=== PATIENT | female | born 1950 | race Caucasian/White ===

== ENCOUNTER 2016-09-19 15:11 | Observation (INO) | payer MEDICARE, OTHER ==
[~2016-09-19] VITALS: Ht 174 cm; Wt 74.0 kg
[~2016-09-19 15:11] MED LIST: ASCO100089 PO; ASPI-628 PO; CALC-190 PO; CHOL100043 PO; COD1CAPS16 PO; MULT-285 PO; TRIA1TAB3 PO
[2016-09-19 15:14] VITALS: BP 137/75; PULSE 63; RESP 16; O2SAT 100
--- NOTE | 2016-09-19 15:54 | ED.REPORT ---
HPI-General Illness Date of Service Sep 19, 2016 ED Provider: Tr Erazo MD A 65 year old female with a history of hyperlipidemia and hypertension presents to the ED with chest pressure and heaviness that began this morning. Her chest pressure has been constant since onset. She rates her current pain as a 3/10 and the pain does not radiate anywhere. She reports intermittent episodes of dizziness and lightheadedness that began yesterday and lasts 10-15 seconds. She also reports episodic left arm numbness and tingling. Patient was seen today at Urgent Care for sternal chest pain and was sent to the ED for further evaluation following a reassuring EKG and chest X-ray. Last stress test in 2014 was normal. Mother of CHF in her 60's. Patient denies any unilateral weakness, generalized weakness, SOB, fever, chills, abdominal pain, nausea or vomiting. Patient smokes 2-3 cigarettes per week. Nursing Notes Stated Complaint: CHEST PAIN Chief Complaint: Chest Pain Nursing Notes Reviewed: Yes Allergies: Coded Allergies: doxycycline (Verified Allergy, Severe, facial swelling, 09/19/16) atorvastatin (Verified Allergy, Intermediate, peripheral neuropathy, ) Scheduled Ascorbate Calcium (Vitamin C) 500 Mg Tablet 1,000 MG PO DAILY Aspirin (Aspirin) 81 Mg Tablet 81 MG PO DAILY Calcium Carb/Vit D3/Minerals (Calcium 600+D Plus Minerals Tb) 1 Each Tablet 1 EACH PO DAILY Cholecalciferol (Vitamin D3) (Vitamin D) 1,000 Unit Tablet 1,000 UNIT PO DAILY Estradiol (Estrace) 42.5 Gm Cream.appl 1 GM VAGINAL WEEKLY Hydrochlorothiazide (Hydrochlorothiazide) 25 Mg Tablet 12.5 MG PO DAILY Lisinopril (Lisinopril) 5 Mg Tablet 5 MG PO DAILY Multivitamin (Multivitamins) 1 Each Capsule 1 EACH PO DAILY Vit A & D3 in Cod Liver Oil (Cod Liver Oil Softgel) 1 Each Capsule 1 EACH PO DAILY General Time Seen by MD: 15:44 Chief Complaint Chest pain Hx Obtained From: Patient Arrived By: Walk-in Sudden in Onset?: No Onset Occurred: Yesterday Symptom Duration: Intermittent Location: : Chest Quality: Heaviness, Pressure Radiation: : Does not radiate Severity: Current: Pain level 3 out of 10 Severity: Maximum: Pain level 3 out of 10 Associated with: Reports: Chest pain, Dizziness, Weakness, Denies: Fever, Nausea, Shortness of breath, Vomiting Pertinent Negative: Pt denies other symptoms Recent Healthcare: No recent doctor visit, No recent hospitalization Past Medical History Past Medical History Hypertension Hyperlipidemia Past Surgical History Colonoscopy - Hemorrhoids (2014) Family History Mother - of CHF in 60's Smoking History Current Some Day Smoker (2-3 days) Social History Other Social History: Good social support, , Local resident Ambulatory Status Independent Review of Systems Full Review of Systems Constitutional: Denies: Chills, Fever Respiratory: Denies: Shortness of breath Cardiovascular: Reports: Chest pain (chest pressure) GI: Denies: Abdominal pain, Nausea, Vomiting Neurologic: Reports: Dizziness, Lightheaded, Numbness, Denies: Weakness Complete sys rev & neg: except as marked. Physical Exam Nursing note and vitals reviewed. Constitutional: Well-developed, well-nourished. Not diaphoretic. Head: Normocephalic and atraumatic. Mouth/Throat: Oropharynx is clear and moist. No oropharyngeal exudate. Eyes: EOM are normal. Pupils are equal, round, and reactive to light. Neck: Supple, no tracheal deviation. Cardiovascular: Normal rate, regular rhythm. Equal and intact distal pulses throughout. Pulmonary/Chest: Effort normal and breath sounds normal. No respiratory distress. Abdominal: Soft. No distension. There is no tenderness, rebound, or guarding. Musculoskeletal: Range of motion grossly intact, moving all extremities. No edema or tenderness appreciated. Neurological: AOx3. Grossly nonfocal exam. Strength and sensation intact and equal to bilateral upper and lower extremities. Normal finger to nose testing. No pronator drift. unremarkable gait. Skin: Warm and dry, no rashes or pallor appreciated. Psychiatric: Appropriate mood and affect. Behavior appears normal. Vital Signs Vital Signs Date Time Temp Pulse Resp B/P Pulse Ox O2 Delivery O2 Flow Rate FiO2 09/19/16 19:29 60 16 156/53 100 Room Air 09/19/16 17:43 57 15 150/75 09/19/16 15:14 36.0 63 16 137/75 100 Room Air Interpretation & Diagnostics Lab Results Interpretation Result Diagram: 09/19/16 1550 09/19/16 1550 Test 09/19/16 15:50 White Blood Count 4.8th/mm3 (3.8-10.1) Red Blood Count 4.24mil/mm3 (3.90-5.20) Hemoglobin 13.7g/dL (12.0-15.6) Hematocrit 39.8% (35.0-46.0) Mean Corpuscular Volume 93.9fL (81-100) Mean Corpuscular Hemoglobin 32.3pg (27.0-35.0) Mean Corpuscular Hemoglobin Concent 34.4% (32.0-37.0) Red Cell Distribution Width 11.8% (12.3-15.4) Platelet Count 255bil/L (150-400) Neutrophils (%) (Auto) 66.1% (40-74) Lymphocytes (%) (Auto) 23.2% (14-46) Monocytes (%) (Auto) 8.2% (4-12) Eosinophils (%) (Auto) 2.1% (0-5) Basophils (%) (Auto) 0.4% (0-3) Sodium Level 136mEq/L (134-144) Potassium Level 3.4mEq/L (3.5-5.2) Chloride Level 97mEq/L (97-108) Carbon Dioxide Level 25mmol/L (18-29) Blood Urea Nitrogen 15mg/dL (8-27) Creatinine 0.60mg/dL (0.57-1.00) Estimat Glomerular Filtration Rate 144mL/min (>59) Glucose Level 120mg/dL (60-99) Calcium Level 9.4mg/dL (8.5-10.1) Magnesium Level 2.1mg/dL (1.6-2.6) Total Bilirubin 0.5mg/dL (0.0-1.2) Aspartate Amino Transf (AST/SGOT) 24U/L (0-50) Alanine Aminotransferase (ALT/SGPT) 26U/L (0-32) Alkaline Phosphatase 81U/L (25-165) Total Creatine Kinase 72U/L (21-215) Creatine Kinase MB 1.7ng/mL (0.0-5.3) Creatine Kinase MB % % (0.0-5.0) Troponin T < 0.010ug/L (0.0-0.011) Total Protein 7.3g/dL (6.4-8.4) Albumin 4.4g/dL (3.4-5.0) Thyroid Stimulating Hormone (TSH) 1.400uIU/mL (0.450-4.500) Hold Hameed Top Tube Received (Received) ECG Interpretation ECG Interpretation: EKG Sinus Rhythm Rate 62 Borderline prolonged NV interval Time: 15:40 Interpreted by: ED physician X-Ray Chest Interpretation Chest Xray Interpretation: IMPRESSION: No acute cardiopulmonary disease process. Dictated by: Lulu Nguyen MD, PhD on 09/19/2016 at 16:20 Interpretation / Wet Read by: Interpret - Radiologist CT Head Interpretation IMPRESSION: No acute intracranial disease process. Dictated by: Lulu Nguyen MD, PhD on 09/19/2016 at 19:16 Study: Head CT no contrast Interpretation / Wet Read by: Interpret - Radiologist Re-Eval/Medical Decision Med Decision/Clinical Course In summary, 65 yo F who presents to the ED for evaluation of exertional midsternal chest pain with associated R arm numbness and tingling. Differential includes ACS, PE, PTX, aortic dissection, myocarditis/pericarditis, abdominal etiology such as cholecystitis, MSK pain. Pain has been constant since onset; troponin negative. HEART score of 4. EKG demonstrates sinus rhythm with no acute ischemic changes. Low risk by [facility] for PE. No evidence of pneumothorax on chest x-ray or exam. Pain not described as tearing through to the back, CXR w / no evidence of widened mediastinum, normal neuro exam, and equal pulses to bilateral upper and lower extremities; aortic dissection seems very unlikely. Neither clinical presentation, exam, or EKG seem c/w pericarditis or myocarditis. No abdominal pain or tenderness. Rest of labs reviewed, unremarkable. With the patient's right sided paresthesias, a CT head was obtained and negative for acute abnormality. Patient would likely benefit from a stress test for risk stratification - given her risk factors, plan admission for further evaluation and management. Patient agreeable to plan, no further questions. Time of Eval: 18:27 Patient Status: Condition improved Re-Evaluation/Progress Note: She is informed of her results and the recommendation to have a repeat stress test. She is offered admission at this time. Consultation : Referral / Consult Name: Heaven Bruno DO Consulted With: Hospitalist Call Returned at: 19:28 Help Desk Assistant: Will see patient, Agrees with eval, Agrees with plan, Accepts admit Counseled Regarding: Diagnosis, Lab results, Need for admission Discharge & Departure Primary Impression: Chest pain Chest pain type: unspecified Qualified Code: R07.9 - Chest pain, unspecified Additional Impression: TIA (transient ischemic attack) Transient cerebral ischemia type: unspecified Qualified Code: G45.9 - Transient cerebral ischemic attack, unspecified Disposition: ADMITTED TO HOSPITAL Discharge Condition All VS Reviewed: Yes Condition: Improved Referrals: Chichi Mabry MD (PCP) Scribe Attestation Portions of this note were transcribed by Roberto Vizcarra. I, Dr. Erazo personally performed the history, physical exam and medical decision-making; I reviewed and confirmed the accuracy of the information in the transcribed note. Signed by: Deborah Arellano, 09/19/161926. copies to: Chichi Mabry MD, William B MD Sep 19, 2016 15:54 ROBERTO VIZCARRA Sep 19, 2016 16:02
[2016-09-19 16:06] LABS: BASOPHILS % (AUTO) 0.4 % (0-3); EOSINOPHILS % (AUTO) 2.1 % (0-5); MONOCYTES % (AUTO) 8.2 % (4-12); Mean Corpuscular Hemoglobin 32.3 pg (27.0-35.0); Mean Corpuscular Volume 93.9 fL (81-100); NEUTROPHILS % (AUTO) 66.1 % (40-74); Platelet Count 255 bil/L (150-400)
--- NOTE | 2016-09-19 16:23 | DRSVH ---
PROCEDURE: X-RAY CHEST ONE VIEW, PORTABLE ([id number]) INDICATIONS: Chest pain. TECHNIQUE: One view of the chest was acquired. COMPARISON: [facility], , CHEST 1VW (PORTABLE), 07/16/2009, 16:29. FINDINGS: Surgical changes and devices: None. Lungs and pleura: No pleural effusions or pneumothorax. Lungs are clear. Mediastinum: Mediastinal contours appear normal. Heart size is normal. Bones and chest wall: No suspicious bony lesions. Overlying soft tissues appear unremarkable. IMPRESSION: No acute cardiopulmonary disease process. Dictated by: Lulu Nguyen MD, PhD on 09/19/2016 at 16:20 Approved by: Lulu Nguyen MD, PhD on 09/19/2016 at 16:20
[2016-09-19 16:32] LABS: TROPONIN T < 0.010 ug/L (0.0-0.011)
[2016-09-19 16:40] LABS: Magnesium 2.2 mg/dL (1.6-2.6)
[2016-09-19 17:43] VITALS: BP 150/75; PULSE 57; RESP 15
[2016-09-19] MEDS ORDERED: LISI-571 PO (19:10)
[2016-09-19] MEDS ORDERED: HYDR25TA4 PO (19:10)
[2016-09-19] MEDS ORDERED: ESTR42.52 VAGINAL (19:10)
[2016-09-19] MEDS ORDERED: ASCO-294 PO (19:12)
[2016-09-19] MEDS ORDERED: CALC-83 PO (19:12)
[2016-09-19] MEDS ORDERED: MULT1CAP33 PO (19:12)
[2016-09-19] MEDS ORDERED: ASPI-973 PO (19:15)
--- NOTE | 2016-09-19 19:23 | DRSVH ---
PROCEDURE: CT BRAIN WITHOUT CONTRAST ([id number]) INDICATIONS: Left upper extremity paresthesias and dizziness. TECHNIQUE: Noncontrast 4.5 mm thick angled axial sections acquired from the foramen magnum to the vertex, with c oronal reformats. COMPARISON: None. FINDINGS: Image quality: Excellent. CSF spaces: Basal cisterns are patent. No extra-axial fluid collections. The ventricles are symmet carine in size and shape. Brain: No intracranial bleeds or masses. There is cerebral volume loss for age, with resultant vent ricular and sulcal prominence. There are periventricular and deep white matter chronic small vessel ischemic changes. There is intracranial internal carotid artery atherosclerosis. Skull and face: Calvarium and visualized facial bones appear intact, without suspicious lesions. Sinuses: Visualized sinuses and mastoids are clear. IMPRESSION: No acute intracranial disease process. Dictated by: Lulu Nguyen MD, PhD on 09/19/2016 at 19:16 Approved by: Lulu Nguyen MD, PhD on 09/19/2016 at 19:22
[2016-09-19 19:29] VITALS: BP 156/53; PULSE 60; RESP 16; O2SAT 100
[2016-09-19] MEDS ORDERED: Potassium Chloride 20 mEq SR Tablet PO ONE (19:30)
[2016-09-19] MEDS ORDERED: Ondansetron 2 mg/mL 2 mL Inj IVPUSH PRN (19:45)
[2016-09-19] MEDS ORDERED: Polyethylene Glycol (PEG) 17 Gm Powder PO PRN (19:45)
[2016-09-19] MEDS ORDERED: Alum-Mag Hydrox-Simeth 30 mL Suspension PO PRN (19:45)
[2016-09-19] MEDS ORDERED: Senna-Docusate 8.6-50 mg Tablet PO PRN (19:45)
[2016-09-19 20:14] LABS: Creatine Kinase 72 U/L (21-215); Magnesium 2.1 mg/dL (1.6-2.6)
[2016-09-19 20:34] VITALS: BP 163/79; PULSE 58; RESP 18; O2SAT 97
--- NOTE | 2016-09-19 21:29 | PCM.HPMED ---
Subjective Date of Service Sep 19, 2016 Primary Provider: Admitting Physician: Heaven Bruno DO Primary Care Physician: Chichi Mabry MD Attending Physician: Heaven Bruno DO Admit Status: From the Emergency Department Chief Complaint: Chest pain History of Present Illness: Hanh Fulton is a 65-year-old woman with past medical history significant for hyperlipidemia, hypertension who presented to the [facility] emergency department today from urgent care due to constant substernal chest pressure that began several hours prior. Patient denies any radiation of the pain. Patient has a strong family history of coronary artery disease and is a smoker. Patient also noted lightheadedness. Patient also had an episode of chest pressure that lasts about 5-6 hours yesterday but it went away on its own. He denies any nausea/vomiting, abdominal pain, shortness of breath, cough, fevers, chills. He also complains of episodic right arm numbness and tingling. In urgent care patient underwent EKG and chest x-ray which were reassuring. She was also given a full dose aspirin in the urgent care. Patient underwent a stress test last year which was negative. She was not given any NTG. Patient also notes intermittent episodes of tinging in around her mouth and finger tips that lasted a few seconds and went away. In the emergency department her vital signs were stable. She was noted to have a low potassium on laboratory evaluation and was given 40 mEq of potassium PO. Review of Systems: A comprehensive review of systems was conducted with the patient and found to be negative except as above in the History of Present Illness. Allergies Coded Allergies: doxycycline (Verified Allergy, Severe, facial swelling, 09/19/16) atorvastatin (Verified Allergy, Intermediate, peripheral neuropathy, ) Home Medications Hanh Fulton [id number] 1950 09/19/2016 02:20 PM 03/05 Start Date Medication Directions Stop Date alprazolam 0.25 mg tablet take 0.5 - 1 tablet by oral route every day as needed for insomnia or anxiety 11/10/2011 Calcium 500 500 mg calcium (1,250 mg) tablet 08/29/2010 cod liver oil Cap 01/03/2016 Estrace 0.01% (0.1 mg/gram) vaginal cream insert (1G) by vaginal route every week 08/27/2016 hydrochlorothiazide 25 mg tablet take 1 tablet by oral route every day Immune Support Complex take 1 tab daily 08/27/2016 lisinopril 5 mg tablet take 1 tablet by oral route every day for blood pressure control 08/29/2010 Multi-Day Tab take 1 tablet by oral route every day with food Urinary Tract take 1 tab daily 08/29/2010 Vitamin C 1,000 mg Tab 08/28/2016 Vitamin D3 1,000 unit tablet 2 tablets daily PMH Hypertension Hyperlipidemia Insomnia Surgical History Hysterectomy Bilateral tubal ligation Family History Father had dementia and stroke at 89. Mother had a heart attack and of subsequent CHF in her 70s. Social History Hx Alcohol Use: Yes (Occasional) Hx Substance Use: No Hx Tobacco Use: Yes (Pt. considers herself a non-smoker) Smoking Status: Current Some Day Smoker Exam Vital Signs Vital Sign - Last Date Time Temp Pulse Resp B/P Pulse Ox O2 Delivery O2 Flow Rate FiO2 09/19/16 19:29 60 16 156/53 100 Room Air 09/19/16 15:14 36.0 Exam General: No acute distress, well-developed, well-nourished, appropriately interactive. Appears younger than stated age. HEENT: Normocephalic, atraumatic. External ears without defect. Pupils equal, round, and reactive to light and accommodation. Anicteric sclerae, moist conjunctivae, and no lid lag. Oropharynx free of erythema and cobble stoning with moist mucosa. Neck: Supple with full range of motion. No jugular venous distension. No bruits. No lymphadenopathy or thyromegaly. Cardiovascular: Regular rate and rhythm with no murmurs, rubs, or gallops appreciated Pulmonary: Clear to auscultation bilaterally with no crackles, wheezes, or rhonchi. Normal respiratory effort with no use of accessory muscles. Abdomen: Bowel tones present. Soft, nontender, nondistended. No hepatosplenomegaly or masses appreciated. Extremities: No clubbing, cyanosis, edema, or lymphadenopathy appreciated. Skin: Normal temperature, turgor, and texture; no rash, ulcers, or subcutaneous nodules appreciated. Neurological: Cranial nerves grossly intact. Normal muscle strength, tone, and bulk. Reflexes, coordination, and sensory function within normal limits. No known gait impairment. Psychiatric: Normal mood and affect. Alert and oriented to person, place, and time. Lab and Diagnostics Result Diagram: 09/19/16 1550 09/19/16 1550 X-Rays, CTs and MRIs X-RAY CHEST ONE VIEW, PORTABLE IMPRESSION: No acute cardiopulmonary disease process. Dictated by: Lulu Nguyen MD, PhD on 09/19/2016 at 16:20 CT BRAIN WITHOUT CONTRAST IMPRESSION: No acute intracranial disease process. Dictated by: Lulu Nguyen MD, PhD on 09/19/2016 at 19:16 Assessment & Plan Hanh Fulton is a 65-year-old woman with past medical history significant for hyperlipidemia, hypertension who presented to the [facility] emergency department today from urgent care due to constant substernal chest pressure that began several hours prior. Atypical chest pain, present remission, active -Patient meets 1/3 criteria per Honey Stacy, with an intermediate pre- test probability of positive stress test. -Telemetry -Fasting lipid panel in a.m., A1c -Aspirin 81 mg -Patient has allergy to statins -Echo in a.m. -Nuclear Medicine exercise stress test in a.m. -EKG PRN chest pain -Will hold beta blocked for stress test -Trend troponin -NTG PRN pain -Morphine PRN pain -NPO after midnight Hypokalemia, present on admission, active -Likely culprit of perioral and digit tingling. -CT brain negative. Exam unremarkable. Unlikely to represent a stroke or TIA. -Continue to monitor electrolytes Hypertension -Continue home medications Hypokalemia -Continue home medications Nicotine dependence -Nicotine patch offered CODE STATUS: Full code Patient is admitted under observation status with expected length of stay less than 2 midnights due to severity of presenting symptoms, risk of adverse event, and complexity of treatment plan VTE Prophylaxis: Sub-Q Heparin (Unfractionated) Resuscitation Status: CPR: Attempt Resuscitation Attending Statement The patient was seen and examined together with house staff on 09/19/2016 and I agree with the history, exam and plan as outlined in the note above. Hellen Simeon DO Sep 19, 2016 20:25 Heaven Bruno DO Sep 20, 2016 01:15
--- NOTE | 2016-09-19 22:24 | NUR ---
Admit Patient admitted to room 3015 at 2015 from ED. Alert and oriented. Admit assessment done in ED by admit RN. Oriented to room, call light, plan of care, hospital policies, intentional rounding. Patient to be NPO after midnight- agreeable. Telemetry connected, patent IV site. Call light within reach.
[2016-09-20] VITALS (7 sets, daily range): BP systolic 117–165; BP diastolic 71–75; PULSE 49–62; RESP 18; O2SAT 96–99
[2016-09-20] MEDS: Sodium Chloride LOK Flush 10 mL Syringe IVFLUSH SCH ×2 (00:47→08:42)
[2016-09-20] MEDS: Heparin 5,000 Unit/mL Inj SUBQ SCH ×2 (00:47→08:43)
[2016-09-20 03:51] LABS: BASOPHILS % (AUTO) 0.5 % (0-3); EOSINOPHILS % (AUTO) 3.6 % (0-5); MONOCYTES % (AUTO) 11.6 % (4-12); Mean Corpuscular Volume 94.7 fL (81-100); NEUTROPHILS % (AUTO) 56.3 % (40-74); Platelet Count 242 bil/L (150-400)
[2016-09-20 04:27] LABS: Creatine Kinase 55 U/L (21-215)
[2016-09-20] MEDS ORDERED: Ascorbic Acid 500 mg Tablet PO SCH (08:30)
[2016-09-20] MEDS: Calcium Carbonate (Oyster Shell) 500 mg Tablet PO SCH ×2 (08:30→08:48)
--- NOTE | 2016-09-20 13:39 | DRSVH ---
PROCEDURE: EITHER REST OR STRESS ONLY Exercise myocardial perfusion SPECT with gated imaging and ejection fraction RADIOPHARMACEUTICAL: 19.7 mCi Tc-99m tetrafosmin IV at peak exercise. INDICATIONS: CP. TECHNIQUE: Radiopharmaceutical was injected at peak stress test. SPECT images were obtained, with p erfusion images in short axis, horizontal long axis, and vertical long axis views. Gated images were reviewed using Henable software. COMPARISON: None. CARDIAC STRESS: A standard Edinson treadmill exercise tolerance test was performed by the patient under the supervision of an attending staff. The patient exercised for 9 minutes and 36 seconds; functional aerobic impai rment (ANGEL) is -45 %. Hemodynamic data: There is normal blood pressure and heart response to exercise. Patient achieved 9 4% of maximum predicted heart rate. Symptoms: Patient denied anginal chest pain during exercise. EKG: No diagnostic changes of ischemia; no ectopy. FINDINGS: Raw data: There is good labeling of myocardium by radiotracer. No significant motion artifacts. . Left ventricular function: Gated images demonstrate normal left ventricle wall thickening. No segme ntal wall motion abnormalities. Left ventricle end diastolic volume is 62 mL. Left ventricle stress ejection fraction is 81%; normal values are above 45%. Myocardial perfusion: There is normal distribution of activity in the left and right ventricular crystal cardium, without focal perfusion defects. IMPRESSION: This is a normal myocardial perfusion study. Normal ejection fraction. Normal stress EKG. Patient denied any chest pain during her the study. Overall this is considered to be a low risk stud y. Dictated by: Lisandro Martin Jr., M.D. on 09/20/2016 at 13:33 Approved by: Lisandro Martin Jr., M.D. on 09/20/2016 at 13:36
--- NOTE | 2016-09-20 13:40 | PCM.DIMED ---
Discharge Instructions Date of Service Sep 20, 2016 Dates of Hospitalization Sep 19, 2016 at 19:30 Discharge Diagnosis Discharge Diagnosis Atypical chest pain, poa,resolved Hypokalemia, present on admission, active hyperlipidemia Hypertension Nicotine dependence Diet Discharge Diet: Low fat, Low Sodium Activity Discharge Activity: Limited until seen by PCP Call your provider Call your provider for: Fever or Chills, Shortness of breath, Bleeding, Chest pain, Vomitting, Excessive diarrhea, Weakness (unilateral) Patient Instructions Patient Instructions You were hospitalized due to chest pain . Pain resolved. EKG ,cardiac enzymes , stress test negative for heart attack. your Cholesterol is elevated.LDL 201. You have been tried on atorvastatin previously discontinued due to side effects of hand tingling. I will start you on pravastatin and see if he tolerates. Continue aspirin 81 mg by mouth daily. Please get your calcium, vitamin D and potassium checked in a week. Continue calcium and vitamin D supplements. Follow-up Provider: Chichi Mabry MD Follow-up with PCP in: 1 week Stanley Elena MD Sep 20, 2016 13:40
--- NOTE | 2016-09-20 14:18 | NUR ---
AGA explained and signed. Copy of AGA and Medicare self administered medication information.
--- NOTE | 2016-09-20 14:30 | NUR ---
Social Work: Initial Assessment / Multidisciplinary Rounds / Discharge Data: Pt is a 65 y/o female admitted for chest pain, TIA. Pt's PCP is Dr Mabry, pt's insurance is Medicare with [employer]. EMR reviewed. Readmit score not listed. BUILDING ADMIN met with pt at bedside, role explained. Pt states she lives on [address] alone in a single story home where she uses no DME. PT has no hx of HH or SNF, drives, does not have LTC or VA benefits, and is not a caregiver. Pt reports her car is at the hospital and she plans to drive herself home today. No further d/c planning needs at this time. BUILDING ADMIN will continue to follow if needs arise. Assessment: Pt who is independent at baseline, capable of self care at this time. Plan: Pt will d/c home via POV today. No further d/c planning needs at this time. BUILDING ADMIN will continue to follow if needs arise. SESAR Medrano Addendum: 09/20/16 at 1433 by PRINCE TORRES Amended: Links added.
[2016-09-20] MEDS ORDERED: PRAV10TA2 PO (15:01)
--- NOTE | 2016-09-20 15:21 | DRSVH ---
[facility] [address] [place] [address] Echocardiogram Report Name: MAGAN OSUNA Study Date: 09/20/2016 Height: 68.5 in Hospital Exam Location: [facility] Weight: 163 lb Gender: Female BSA: 1.9 m2 : 1950 Age: 65 yrs BP: 117/72 m mHg Reason For Study: Chest pain Ordering Physician: [facility] Performed By: Eric Watson Referring Physician: RAKEL LINDSEY Interpretation Summary The left ventricle is normal in size, wall thickness, and systolic function without any focal wall motion abnormalities. The ejection fraction is estimated to be 60-65%. The right ventricle is normal in size and function. Pulmonary artery pressures cannot be estimated because of the lack of a measurable TR jet velocity. Borderline left atrial enlargement. The right atrium is mildly dilated. There is no significant valvular heart disease. The ascending aorta is mildly enlarged. Procedure: A two-dimensional transthoracic echocardiogram with color flow and Doppler was performed. The study quality was technically adequate. There is no prior echocardiogram noted for this patient. The patient was in normal sinus rhythm during the exam. Left Ventricle: The left ventricle is normal in size, wall thickness, and systolic function without any focal wall motion abnormalities. The ejection fraction is estimated to be 60-65%. Assessment of diastolic parameters indicates normal left ventricular diastolic function and normal filling pressures. Right Ventricle: The right ventricle is normal in size and function. Atria: Borderline left atrial enlargement. The right atrium is mildly dilated. The interatrial septum is intact with no evidence for an atrial septal defect. Mitral Valve: The mitral valve is normal. There is trace mitral regurgitation. Aortic Valve: The aortic valve is normal in structure and function. No aortic regurgitation is present. Tricuspid Valve: The tricuspid valve is normal. There is a trace or physiologic amount of tricuspid regurgitation. Pulmonary artery pressures cannot be estimated because of the lack of a measurable TR jet velocity. Pulmonic Valve: The pulmonic valve is not well visualized. There is no significant valvular heart disease. Great Vessels: The aortic root is normal size. The ascending aorta is mildly enlarged. The pulmonary artery is normal size. The IVC is of normal diameter and collapses greater than 50% with a sniff. This suggests a low right atrial pressure of 3 mm Hg. Pericardium/ Pleura There is no pericardial effusion. There is no pleural effusion. MMode/2D Measurements & Calculations LVIDd: 4.8 cm RA long axis LVOT diam: 1.8 cm LVIDs: 2.2 cm LA A2 area: 18.3 cm AoV Opening FS: 53.1 % LA A4 area: 20.8 cm RA area IVSd: 0.83 cm LA length (vol) Ao root diam LVPWd: 0.82 cm : 20.4 cm LA vol: 59.4 ml RA vol asc Aorta Diam LA vol index : 64.4 ml RA Ao Arch Diam (Prox : 34.2 mm2 Trans): 2.8 cm IVC diam: 2.0 cm LV gan. diameter/BSA LV sys. diameter/BSA RVD1 (basal) TAPSE: 2.6 cm (cm/m^2): 2.5 (cm/m^2): 1.2 Doppler Measurements & Calculations Ao V2 max: 156.6 cm/secMV E max gadiel MV E/A: 1.0 PA V2 max Ao max P.8 mmHg : 78.5 cm/sec Med Peak E' Gadiel : 108.1 cm/sec Ao mean P.0 mmHg MV A max gadiel PA mean PG LVOT Max Gadiel : 77.0 cm/sec E/E' med: 10.9 : 3.0 mmHg : 117.0 cm/sec Lat Peak E' Gadiel MATTHEW(I,D): 1.9 cm E/E' lat: 9.5 sev ratio: 0.74 E/e' average MV dec time: 0.26 sec Ao V2 mean LV V1 max PG PA V2 mean : 105.8 cm/sec : 83.5 cm/sec Ao V2 VTI: 35.3 cmLV V1 VTI: 26.2 cmPA pr(Accel) : 19.9 mmHg MATTHEW(V,D): 1.9 cm2 MATTHEW indexed to BSA (cm^2/m^2): 1.0 Reading Physician:JOSE MARTIN
--- NOTE | 2016-09-20 15:47 | NUR ---
Discharge D/C to home with friend at bedside. D/C packet including instructions, RX and care notes discussed and provided. Pt comfortable with plan of care at this time and requested to ambulate off floor with all belongings and was steady on her feet.
--- NOTE | 2016-09-20 16:27 | PCM.DC.MED ---
Discharge Summary Date of Service Sep 20, 2016 Dates of Hospitalization Date of Hospital Admission Sep 19, 2016 at 19:30 Date of Discharge: Sep 20, 2016 Providers: Admitting Physician: Heaven Bruno DO Primary Care Physician: Chichi Mabry MD Attending Physician: Stanley Schofield MD Diagnosis at Time of Discharge Diagnosis at Time of Discharge Atypical chest pain, poa,resolved Hypokalemia, present on admission, active hyperlipidemia Hypertension Nicotine dependence Procedures XRay, CTs & MRIs X-RAY CHEST ONE VIEW, PORTABLE IMPRESSION: No acute cardiopulmonary disease process. Dictated by: Lulu Nguyen MD, PhD on 09/19/2016 at 16:20 CT BRAIN WITHOUT CONTRAST IMPRESSION: No acute intracranial disease process. Dictated by: Lulu Nguyen MD, PhD on 09/19/2016 at 19:16 Cardiac Echo Impression Interpretation Summary The left ventricle is normal in size, wall thickness, and systolic function without any focal wall motion abnormalities. The ejection fraction is estimated to be 60-65%. The right ventricle is normal in size and function. Pulmonary artery pressures cannot be estimated because of the lack of a measurable TR jet velocity. Borderline left atrial enlargement. The right atrium is mildly dilated. There is no significant valvular heart disease. The ascending aorta is mildly enlarged. Other Diagnostics PROCEDURE: EITHER REST OR STRESS ONLY Exercise myocardial perfusion SPECT with gated imaging and ejection fraction RADIOPHARMACEUTICAL: 19.7 mCi Tc-99m tetrafosmin IV at peak exercise. INDICATIONS: CP. TECHNIQUE: Radiopharmaceutical was injected at peak stress test. SPECT images were obtained, with perfusion images in short axis, horizontal long axis, and vertical long axis views. Gated images were reviewed using AutoQUANT software. COMPARISON: None. CARDIAC STRESS: A standard Edinson treadmill exercise tolerance test was performed by the patient under the supervision of an attending staff. The patient exercised for 9 minutes and 36 seconds; functional aerobic impairment (ANGEL) is -45 %. Hemodynamic data: There is normal blood pressure and heart response to exercise. Patient achieved 94% of maximum predicted heart rate. Symptoms: Patient denied anginal chest pain during exercise. EKG: No diagnostic changes of ischemia; no ectopy. FINDINGS: Raw data: There is good labeling of myocardium by radiotracer. No significant motion artifacts. . Left ventricular function: Gated images demonstrate normal left ventricle wall thickening. No segmental wall motion abnormalities. Left ventricle end diastolic volume is 62 mL. Left ventricle stress ejection fraction is 81%; normal values are above 45%. Myocardial perfusion: There is normal distribution of activity in the left and right ventricular myocardium, without focal perfusion defects. IMPRESSION: This is a normal myocardial perfusion study. Normal ejection fraction. Normal stress EKG. Patient denied any chest pain during her the study. Overall this is considered to be a low risk study. Dictated by: Lisandro Martin Jr., M.D. on 09/20/2016 at 13:33 Brief History per HPI Hanh Fulton is a 65-year-old woman with past medical history significant for hyperlipidemia, hypertension who presented to the [facility] emergency department today from urgent care due to constant substernal chest pressure that began several hours prior. Patient denies any radiation of the pain. Patient has a strong family history of coronary artery disease and is a smoker. Patient also noted lightheadedness. Patient also had an episode of chest pressure that lasts about 5-6 hours yesterday but it went away on its own. He denies any nausea/vomiting, abdominal pain, shortness of breath, cough, fevers, chills. He also complains of episodic right arm numbness and tingling. In urgent care patient underwent EKG and chest x-ray which were reassuring. She was also given a full dose aspirin in the urgent care. Patient underwent a stress test last year which was negative. She was not given any NTG. Patient also notes intermittent episodes of tinging in around her mouth and finger tips that lasted a few seconds and went away. In the emergency department her vital signs were stable. She was noted to have a low potassium on laboratory evaluation and was given 40 mEq of potassium PO. Hospital Course Hanh Fulton is a 65-year-old woman with past medical history significant for hyperlipidemia, hypertension who presented to the [facility] emergency department today from urgent care due to constant substernal chest pressure that began several hours prior. # Atypical chest pain, present remission, active -Telemetry unrevealing -Fasting lipid panel -LDL 201. Patient has allergy to statins. She states she has history of hand tingling with atorvastatin with different doses. Her brother also had similar side effects. He was recently started on another cholesterol medication. will start patient on pravastatin and see if she tolerates. Advised to follow- up with PCP -Continue home Aspirin 81 mg -Echo unremarkable given -Nuclear Medicine exercise stress test normal -EKG PRN chest pain -Will hold beta blocked for stress test - troponin negative #Hyperlipidemia -LDL 201. Patient has allergy to statins. She states she has history of hand tingling with atorvastatin with different doses. Her brother also had similar side effects. He was recently started on another cholesterol medication. will start patient on pravastatin and see if she tolerates. Advised to follow- up with PCP #Hypokalemia, present on admission, active -Possible culprit of perioral and digit tingling. -CT brain negative. Exam unremarkable. Unlikely to represent a stroke or TIA. -Continue to monitor electrolytes #perioral and digit tingling. -Due to hypokalemia versus episodic hypocalcemia -Advised to continue calcium and vitamin D supplements -Advised to follow-up with PCP to check CMP and vitamin D levels #Hypertension -Continue home medications Nicotine dependence -Nicotine patch offered Discharged home Condition on discharge stable Exam Vital Signs (Last) Date Time Temp Pulse Resp B/P Pulse Ox O2 Delivery O2 Flow Rate FiO2 09/20/16 14:47 36.8 55 18 135/74 97 Room Air Exam General: No acute distress, well-developed, well-nourished, appropriately interactive. Appears younger than stated age. HEENT: Normocephalic, atraumatic. External ears without defect. Pupils equal, round, and reactive to light and accommodation. Anicteric sclerae, moist conjunctivae, and no lid lag. Oropharynx free of erythema and cobble stoning with moist mucosa. Neck: Supple with full range of motion. No jugular venous distension. No bruits. No lymphadenopathy or thyromegaly. Cardiovascular: Regular rate and rhythm with no murmurs, rubs, or gallops appreciated Pulmonary: Clear to auscultation bilaterally with no crackles, wheezes, or rhonchi. Normal respiratory effort with no use of accessory muscles. Abdomen: Bowel tones present. Soft, nontender, nondistended. No hepatosplenomegaly or masses appreciated. Extremities: No clubbing, cyanosis, edema, or lymphadenopathy appreciated. Skin: Normal temperature, turgor, and texture; no rash, ulcers, or subcutaneous nodules appreciated. Neurological: Cranial nerves grossly intact. Normal muscle strength, tone, and bulk. Reflexes, coordination, and sensory function within normal limits. No known gait impairment. Psychiatric: Normal mood and affect. Alert and oriented to person, place, and time. Test 09/19/16 15:50 09/19/16 19:44 09/20/16 03:35 Hemoglobin A1c 5.3% (4.8-5.6) Magnesium Level 2.1mg/dL (1.6-2.6) Total Bilirubin 0.5mg/dL (0.0-1.2) Aspartate Amino Transf (AST/SGOT) 24U/L (0-50) Alanine Aminotransferase (ALT/SGPT) 26U/L (0-32) Alkaline Phosphatase 81U/L (25-165) Total Protein 7.3g/dL (6.4-8.4) Albumin 4.4g/dL (3.4-5.0) Thyroid Stimulating Hormone (TSH) 1.400uIU/mL (0.450-4.500) Hold Hameed Top Tube Received (Received) Hold Urine Received (Received) White Blood Count 4.1th/mm3 (3.8-10.1) Red Blood Count 3.97mil/mm3 (3.90-5.20) Hemoglobin 12.7g/dL (12.0-15.6) Hematocrit 37.6% (35.0-46.0) Mean Corpuscular Volume 94.7fL (81-100) Mean Corpuscular Hemoglobin 32.0pg (27.0-35.0) Mean Corpuscular Hemoglobin Concent 33.8% (32.0-37.0) Red Cell Distribution Width 11.8% (12.3-15.4) Platelet Count 242bil/L (150-400) Neutrophils (%) (Auto) 56.3% (40-74) Lymphocytes (%) (Auto) 27.8% (14-46) Monocytes (%) (Auto) 11.6% (4-12) Eosinophils (%) (Auto) 3.6% (0-5) Basophils (%) (Auto) 0.5% (0-3) Sodium Level 137mEq/L (134-144) Potassium Level 4.3mEq/L (3.5-5.2) Chloride Level 100mEq/L (97-108) Carbon Dioxide Level 23mmol/L (18-29) Blood Urea Nitrogen 16mg/dL (8-27) Creatinine 0.58mg/dL (0.57-1.00) Estimat Glomerular Filtration Rate 149mL/min (>59) Glucose Level 100mg/dL (60-99) Calcium Level 8.9mg/dL (8.5-10.1) Total Creatine Kinase 55U/L (21-215) Creatine Kinase MB 1.3ng/mL (0.0-5.3) Creatine Kinase MB % % (0.0-5.0) Troponin T 0.010ug/L (0.0-0.011) Triglycerides Level 135mg/dL (0-149) Cholesterol Level 323mg/dL (100-199) LDL Cholesterol, Calculated 201.000mg/dL (0-99) VLDL Cholesterol 27.000mg/dL HDL Cholesterol 95mg/dL (>39) Cholesterol/HDL Ratio 3.40 (0.0-4.4) Discharge Medications Discharge Medications Ascorbate Calcium (Vitamin C) 500 Mg Tablet 1,000 MG PO DAILY (Reported) Aspirin (Aspirin) 81 Mg Tablet 81 MG PO DAILY (Reported) Calcium Carb/Vit D3/Minerals (Calcium 600+D Plus Minerals Tb) 1 Each Tablet 1 EACH PO DAILY (Reported) Cholecalciferol (Vitamin D3) (Vitamin D) 1,000 Unit Tablet 1,000 UNIT PO DAILY ( Reported) Estradiol (Estrace) 42.5 Gm Cream.appl 1 GM VAGINAL WEEKLY (Reported) Hydrochlorothiazide (Hydrochlorothiazide) 25 Mg Tablet 12.5 MG PO DAILY ( Reported) Lisinopril (Lisinopril) 5 Mg Tablet 5 MG PO DAILY (Reported) Multivitamin (Multivitamins) 1 Each Capsule 1 EACH PO DAILY (Reported) Pravastatin (Pravastatin) 10 Mg Tablet 10 MG PO HS Prescribed by: STANLEY SCHOFIELD MD Vit A & D3 in Cod Liver Oil (Cod Liver Oil Softgel) 1 Each Capsule 1 EACH PO DAILY (Reported) Followup Plan Disposition: Home Discharge Diet: Low fat, Low Sodium Discharge Activity: Limited until seen by PCP Patient Instructions You were hospitalized due to chest pain . Pain resolved. EKG ,cardiac enzymes , stress test negative for heart attack. your Cholesterol is elevated.LDL 201. You have been tried on atorvastatin previously discontinued due to side effects of hand tingling. I will start you on pravastatin and see if he tolerates. Continue aspirin 81 mg by mouth daily. Please get your calcium, vitamin D and potassium checked in a week. Continue calcium and vitamin D supplements. Follow-up Provider: Chichi Mabry MD Follow-up with PCP in: 1 week copies to: Chichi Mabry MD, Melaku MD Sep 20, 2016 16:27
== END 2016-09-20 15:35 | disposition home or self-care (01) ==
LOC: SED 15:11 → MPC 19:30
PROVIDERS: ADMIT Internal Medicine; ATTEND Internal Medicine
DX: R07.89 Other chest pain (principal); E87.6 Hypokalemia; E78.5 Hyperlipidemia, unspecified; I10 Essential (primary) hypertension; G47.00 Insomnia, unspecified; F17.210 Nicotine dependence, cigarettes, uncomplicated; Z88.1 Allergy status to other antibiotic agents; Z88.8 Allergy status to other drugs, medicaments and biological substances; Z79.82 Long term (current) use of aspirin; Z79.899 Other long term (current) drug therapy
CPT/HCPCS: 36415; 70450; 71010; 78451; 80048; 80053; 80061; 82550; 82553; 83036; 83735; 84443; 84484; 85025; 93005; 93017; 99285; A9502; C8929; G0378; J1644